=== PATIENT | female | born 1975 | race Caucasian/White ===

== ENCOUNTER → 2016-08-04 | Outpatient (CLI) | payer OTHER ==
[~2016-08-04] MED LIST: ADVAIR 250/501 DISK IH; DIOVAN HCT 11 TABLET PO; GLUCOPHAGE500 MG PO; NEXIUM40 MG PO; PROAIR HFA8.5 GM IH; SINGULAIR10 MG PO; ZARAH TABLET1 EACH PO
== END | disposition home or self-care (01) ==
LOC: RAD 11:32
DX: M77.31 Calcaneal spur, right foot (principal)
CPT/HCPCS: 73650